=== PATIENT | female | born 1940 | race Asian ===

== ENCOUNTER 2017-01-03 09:31 | Outpatient (CLI) | payer MEDICARE ==
--- NOTE | 2017-01-04 08:23 | Vascular Lab Report ---
RENAL ARTERY DUPLEX EXAM: REASON FOR EXAM: Renal artery stenosis. NOTE: Visualization is technically limited due to bowel gas and extreme body habitus. COMMENTS ON THE AORTA: The aorta is patent. Normal flow velocities are observed. No aneurysmal dilatation is noted. Mild atherosclerotic change is identified. The celiac artery is patent with significantly elevated flow velocity. The superior mesenteric artery is patent with elevated flow velocity. COMMENTS ON THE RIGHT KIDNEY: The kidney measures 7.6 centimeters in greatest dimension. There is a small possibly atrophic kidney The renal artery is patent. Maximum systolic velocity is 190 cm/sec. This finding is consistent with more than 60% diameter reduction. Renal aortic index is 2.57. This finding is consistent with less than 60% diameter reduction. Overall findings are consistent with more than 60% diameter reduction in the renal artery. COMMENTS ON THE LEFT KIDNEY: The kidney measures 7.95 centimeters in greatest dimension. This is a small possibly atrophic kidney The renal artery is patent. Maximum systolic velocity is 149 cm/sec. This finding is consistent with less than 60% diameter reduction. Renal aortic index is 2. This finding is consistent with less than 60% diameter reduction. Overall findings are consistent with less than 60% diameter reduction in the renal artery. IMPRESSION: RIGHT KIDNEY: Kim than 60% diameter reduction in the renal artery. LEFT KIDNEY: Less than 60% diameter reduction in the renal artery. 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 Clinical correlation recommended.
== END 2017-01-03 09:32 | disposition home or self-care (01) ==
LOC: VAS 09:31
PROVIDERS: ATTEND Internal Medicine Nephrology
DX: N18.3 Chronic kidney disease, stage 3 (moderate) (principal)
CPT/HCPCS: 93975